=== PATIENT | male | born 1945 | race Caucasian/White ===

== ENCOUNTER 2017-12-07 09:24 | Emergency (ER) | payer OTHER, SELFPAY ==
[2017-12-07] VITALS (48 sets, daily range): BP systolic 114–171; BP diastolic 64–95; PULSE 69–81; RESP 8–32; TEMP 36.6–36.7; O2SAT 94–100
--- NOTE | 2017-12-07 10:16 | ED.GENADUL ---
Disposition Clinical Impression: Syncope, Possible seizure, Left leg weakness, Dehydration Disposition: HOME Condition: Good Instructions: Dehydration (ED), Syncope (ED) Additional Instructions: Drink plenty of fluids and get plenty of rest. Call your primary care doctor at the [facility] today to schedule a follow-up appointment for reevaluation within the next week. Return to the emergency department with any worsening or new concerning symptoms. Medical Decision Making - Lab Data Laboratory Tests 12/07/17 12/07/17 12/07/17 09:35 09:35 13:45 WBC 5.71 RBC 4.40 L Hgb 13.3 L Hct 40.3 MCV 91.6 MCH 30.2 MCHC 33.0 RDW 14.6 H Plt Count 163 MPV 11.8 H Immature Gran % 0.2 Neutrophils % 76.1 Lymphocytes % 14.7 Monocytes % 7.4 Eosinophils % 1.4 Basophils % 0.2 Absolute Neutrophils 4.35 Absolute Lymphocytes 0.84 L Absolute Monocytes 0.42 Absolute Eosinophils 0.08 Absolute Basophils 0.01 Sodium 141 Potassium 3.7 Chloride 102 Carbon Dioxide 28.9 Anion Gap 10.1 BUN 19 H Creatinine 1.27 Estimated GFR/1.73 m2 55.44 Glucose 92 Calcium 9.1 Magnesium 2.1 Total Bilirubin 0.4 Conjugated Bilirubin < 0.05 AST 28 ALT 23 Alkaline Phosphatase 96 Troponin I < 0.02 Total Protein 7.5 Albumin 3.6 Urine Color Yellow Urine Clarity Clear Urine pH 5.5 Ur Specific [place] 1.025 Urine Protein 30 H Urine Ketones Trace H Urine Blood Negative Urine Nitrite Negative Urine Bilirubin Negative Urine Urobilinogen 0.2 Ur Leukocyte Esterase Negative Urine RBC Negative Urine WBC Negative Ur Epithelial Cells Rare Urine Crystals Few calcium oxalate Urine Bacteria Rare Urine Casts Negative Urine Mucus Trace Urine Other Negative Ur Culture Indicated? No Urine Glucose Negative 12/07/17 0932: 78bpm. Sinus. QRS 110. ST depression 1 mm noted in V2-V4 and V6 which has been seen in previous EKG. no acute ST elevation. No acute change from previous. - Radiology Data Radiology results: report reviewed, image reviewed CT head: negative CXR: Linear infiltrates in the left midlung may represent atelectasis, scarring or pneumonia. 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 Patient had episode of L leg weakness 3 days ago which lasted 24 hours and then resolved. Pt was seen at the [facility] ER for this leg weakness and was told his symptom was likely due to TIA. Patient has a history of multiple TIAs which usually produces a symptom of feeling off balance. Patient has no known history of seizures. states patient appears more sleepy at this time than usual. This may be postictal. Vitals within normal limits. EKG on arrival notes ST depression in anterior lateral leads which is no acute change from previous. He has no focal deficits. He is able to follow commands. Differential diagnosis includes dehydration, TIA, CVA, brain mass or metastasis, electrolyte abnormality, urinalysis, pneumonia. states if possible she would prefer patient to go home. Considering patient's history, will check labs, urinalysis, CT head and give bolus IV fluids. 1150: Labs and imaging reviewed. CT head and chest x-ray negative. No acute findings on labs. Patient given 250 bolus and appears more alert and bright eyed. He has not yet urinated. Will give another 250 cc bolus. 1330: Patient has perked up significantly and is sitting up and eating food and drinking water and appears much brighter and alert. Patient given a liter of fluids while here in the ED. later determined that patient has been drinking mainly soda for the past few days. Chest x-ray noted questionable atelectasis, scarring versus pneumonia. states that pt usually has an abnormal cxr due to his h/o lung cancer. He has no cough, chest pain, shortness of breath with normal white blood cell count, afebrile, and no tachycardia or hypoxia. Doubt pneumonia at this time. Results were discussed with patient's and she is agreeable so we will hold on antibiotics at this time. Analysis noted ketones which can support the possibility of dehydration but no evidence of infection. We discussed the possibility of whether patient had a seizure and states she is sure it appeared like that. We discussed again that at this point time I do not see any acute indication for admission including a possible new onset seizure and is agreeable and she would rather he go home. Recommended that they call the primary care doctor the [facility] to schedule follow-up appointment for reevaluation within the next week. They are instructed to return immediately to the ER with any worsening symptoms. 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 states that patient was complaining of feeling sick this morning and weak while walking with walker. states that patient then complained of left leg weakness. Patient had a similar episode 3 days ago at home for which she was seen in the ER at the [facility] yesterday. Patient had a 24-hour period of left leg weakness which was diagnosed as a possible TIA at the [facility] ER. states that patient had lab work and CT head which was negative and he was discharged home. states that patient complained of left leg weakness again today and she sat him down in a chair. She states shortly after this his eyes rolled back, his lips became landrum and he had full body jerking which she thought was consistent with a seizure and lasted 1 minute. states that pt still seems more sleepy than usual. Patient denies headache, dizziness, chest pain, shortness of breath, abdominal pain or urinary symptoms. Patient ate breakfast this morning and they deny recent vomiting or diarrhea. also states that patient has been told he has had previous TIAs in the past which he usually has a sensation of being off balance. - Related Data Albuterol [Proair Hfa] 2 puff IH PRN PRN 11/06/12 Formoterol Fumarate [Foradil] 1 cap IH BID 11/06/12 Levothyroxine Sodium 75 mcg PO DAILY 11/06/12 Omeprazole 40 mg PO DAILY 11/06/12 Sertraline HCl 100 mg PO DAILY 11/06/12 Tiotropium [Spiriva Handihaler] 1 cap IH DAILY 11/06/12 Albuterol/Ipratropium [Duoneb Updraft] 1 ea IH QID 04/25/15 Mineral Oil/Petrolatum,White [Eucerin Creme] 1 applic TP PRN PRN 04/25/15 Mometasone [Asmanex 220 Twisthaler] 1 puff IH BID 04/25/15 Multivitamin with Minerals [Multivitamins with Minerals] 1 tab PO DAILY 04/25/15 Allergies Allergy/AdvReac Type Severity Reaction Status Date / Time bupropion HCl AdvReac Intermediate Hives Unverified 10/23/17 11:46 [From Wellbutrin] tape AdvReac Mild itchy/localized Uncoded 10/23/17 11:46 welts Review of Systems Constitutional: denies: chills, fever Eyes: denies: eye pain ENT: denies: ear pain, dental pain Respiratory: denies: cough, shortness of breath Cardiovascular: denies: chest pain, dyspnea on exertion Gastrointestinal: denies: abdominal pain, nausea, vomiting Genitourinary: denies: urgency, dysuria, frequency Musculoskeletal: denies: back pain Skin: denies: rash, lesions Neurological: denies: headache, weakness, numbness Past Medical History - Past Medical History Medical history: AMI, CAD, cancer, COPD, GERD, hyperlipidemia, hypertension Surgical history: angioplasty/stent, appendectomy, cholecystectomy, herniorraphy, other - Social History Smoking status: never smoker Alcohol use: none Drug use: none General Exam - General Limitations: no limitations General appearance: in no apparent distress - Eye Eye exam: Present: PERRL, EOMI - Respiratory Respiratory exam: Present: normal lung sounds bilaterally. Absent: respiratory distress, wheezes, rales, rhonchi, stridor - Cardiovascular Cardiovascular Exam: Present: regular rate, normal rhythm. Absent: bradycardia, tachycardia - GI/Abdominal GI/Abdominal exam: Present: soft, normal bowel sounds. Absent: distended, tenderness, guarding, rebound, rigid - Extremities Exam Extremities exam: Present: full ROM - Neurological Exam Neurological exam: Present: alert, oriented X3, CN II-XII intact. Absent: motor sensory deficit - Psychiatric Psychiatric exam: Present: flat affect - Skin Skin exam: Present: warm, dry, intact Course Vital Signs - 24 hr 12/07/17 12/07/17 12/07/17 09:25 09:28 09:30 Temperature 97.9 F Pulse 75 Respiratory 16 18 16 Rate Blood Pressure 122/67 Pulse Oximetry 97 95 94 L 12/07/17 12/07/17 12/07/17 09:31 09:40 09:46 Temperature Pulse 72 72 Respiratory 17 18 20 Rate Blood Pressure 122/67 116/65 Pulse Oximetry 94 L 96 95 12/07/17 12/07/17 09:50 10:06 Temperature Pulse Respiratory 21 16 Rate Blood Pressure Pulse Oximetry 96
--- NOTE | 2017-12-07 10:36 | DI.RPTCT_ITS ---
SYMPTOM/DIAGNOSIS: POSSIBLE SEIZURE/SYNCOPE. R/O ACUTE MASS, LESION CT BRAIN: Noncontrast. Comparison 10/23/17. There is cerebral atrophy consistent with the patient's age. There are areas of decreased attenuation in the white matter consistent with small vessel ischemic disease. There are bilateral lacunar infarcts present. No acute intracranial hemorrhage, infarct, midline shift or mass effect is identified. The ventricles are intact. The basilar cisterns are patent. No findings to suggest acute sinusitis are seen. The mastoid air cells are well pneumatized. The calvarium is intact. IMPRESSION: No acute intracranial process.
--- NOTE | 2017-12-07 10:38 | DI.REPORT_ITS ---
SYMPTOM/DIAGNOSIS: SYNCOPE VS SEIZURE, H/O LUNG CANCER, R/O ACUTE PROCESS CHEST X-RAY: Frontal and lateral views. Comparison is 04/25/15. Heart size and pulmonary vasculature are stable. There is a linear infiltrate seen in the left hilar region. The lungs are otherwise clear. The lungs are hyperinflated consistent with underlying COPD. No effusions or pneumothoraces are identified. The bones appear intact. IMPRESSION: Linear infiltrates seen in the left mid lung. This may represent atelectasis, scarring or pneumonia.
[2017-12-07 10:46] LABS: Abs Immature Grans 0.01 k/cumm (0.0-0.09); Absolute Basophil Count 0.01 k/cumm (0.0-0.2); Absolute Eosinophil Count 0.08 k/cumm (0.0-0.7); Absolute Lymphocyte Count 0.84 k/cumm (1.2-3.4); Absolute Monocyte Count 0.42 k/cumm (0.11-0.7); Absolute Neutrophil Count 4.35 k/cumm (1.2-6.7); Basophils % 0.2; Eosinophils % 1.4; HCT 40.3 % (40.0-50.0); HGB 13.3 g/dL (13.5-17.5); Immature Grans % 0.2; Lymphocytes % 14.7; Mean Corpuscular Hemoglobin 30.2 pg (27.0-33.0); Mean Corpuscular Volume 91.6 fL (80-95); Mean Platelet Volume 11.8 fL (8.0-11.0); Monocytes % 7.4; Neutrophils % 76.1; Platelet Count 163 x1000/uL (130-400); RBC Distribution Width 14.6 % (11.8-14.1); White Blood Cell Count 5.71 k/cumm (4.4-10.8)
[2017-12-07] MEDS: Normal Saline 250 ML IV ×3 (11:00→13:15)
[2017-12-07 11:01] LABS: ALT 23 U/L (12-78); AST 28 U/L (15-37); Albumin 3.6 g/dL (3.4-5.0); Alkaline Phosphatase 96 U/L (46-116); Anion Gap 10.1 mmol/L (3-11); BUN 19 mg/dL (7-18); Bilirubin, Total 0.4 mg/dL (0.2-1.0); CO2 28.9 mmol/L (21.0-32.0); CREATININE 1.27 mg/dL (0.70-1.30); Calcium 9.1 mg/dL (8.5-10.1); Chloride 102 mmol/L (98-107); Estimated GFR 55.44 (mL/min/1.73m2); Glucose 92 mg/dL (70-100); Magnesium 2.1 mg/dL (1.8-2.4); Potassium 3.7 mmol/L (3.5-5.1); Sodium 141 mmol/L (136-145); Total Protein 7.5 g/dL (6.4-8.2)
[2017-12-07 11:23] LABS: Bilirubin, Direct < 0.05 mg/dL (0.00-0.20); Troponin I < 0.02 ng/mL (0.00-0.06)
--- NOTE | 2017-12-07 11:43 | NUR.NOTE ---
Nursing Note: Pt returns from radiology. Continues awake/ affect continues flat . FAST continues neg.
--- NOTE | 2017-12-07 11:45 | NUR.NOTE ---
Nursing Note: Pt unable to void at this time. is at the bedside and is encouraging.
--- NOTE | 2017-12-07 11:58 | NUR.NOTE ---
Nursing Note: Pt talking more with his and states to ED RN I think I feel a little better.
--- NOTE | 2017-12-07 13:39 | NUR.NOTE ---
Nursing Note: Pt stands to void and has dark yellow urine , 50cc total. states pt has been drinking alot of coke lately, minimal decafinated product.. Pt is more interactive with ED RN and is able to stand and walk with ED RN standing at his side for safety.
[2017-12-07 13:49] LABS: Bilirubin Negative (Negative); Blood Negative (Negative); Clarity Clear; Glucose Negative (Negative); Ketones Trace mg/dL (Negative); Leukocyte Esterase Negative (Negative); Nitrite Negative (Negative); Specific Gravity 1.025 (1.005-1.025); Urobilinogen 0.2 EU/dL (Up TO 0.2); pH 5.5 (5-8)
--- NOTE | 2017-12-07 13:54 | NUR.NOTE ---
Nursing Note: 1335: Pt to MRI prior to admission to med-surg. Med-surg aware pt will be admitted following MRI.
[2017-12-07 13:56] LABS: Bacteria Rare HPF (Negative); C & S Indicated? No; Casts Negative LPF (Negative); Crystals Few Calcium Oxalate HPF (Negative); Epithelial Cells Rare HPF (Negative); Mucus Trace (Negative); Other Cells Negative (Negative); RBC Negative (0-2); WBC Negative HPF (0-5)
== END 2017-12-07 14:55 | disposition home or self-care (01) ==
PROVIDERS: Emergency Provider Physician Assistant
DX: R55 Syncope and collapse (principal); E86.0 Dehydration; G81.94 Hemiplegia, unspecified affecting left nondominant side
CPT/HCPCS: 36415; 80053; 80076; 93005; 96360; 96361; 99285; 70450; 71046; 81003; 81015; 83735; 84484; 85025; 93010

== ENCOUNTER 2018-03-19 09:14 | Emergency (ER) | payer OTHER, SELFPAY ==
[2018-03-19 09:21] VITALS: BP 153/95; PULSE 83; RESP 18; TEMP 36.6; O2SAT 96
--- NOTE | 2018-03-19 09:41 | DI.CT_ITS ---
SYMPTOMS/DIAGNOSIS: HEADACHES AND WEAKNESS, ? SUBDURAL HEMATOMA CRANIAL CT: Noncontrast cranial CT was performed. There is moderate generalized cerebral atrophy. There is a probable small old right cerebellar infarction and there are bilateral lacunar infarctions, right greater than left. No evidence of acute intracranial hemorrhage, mass effect or midline shift. Orbital and temporal bone structures appear intact. CONCLUSION: No evidence of acute intracranial process.
--- NOTE | 2018-03-19 09:47 | ED.GENADUL_ITS ---
Discharge Plan Disposition Patient Disposition: HOME Condition: Stable Discharge Details Chief Complaint: GenMedical Clinical Impression: General weakness Reason For Visit: PK Primary Care Provider: Latasha Myers ED Provider: Pravin Adam Home Meds and New Rx's Prescriptions: New levofloxacin 750 mg tablet 750 mg PO DAILY Qty: 7 RF: 0 Continue omeprazole 20 MG capsule,delayed release(DR/EC) 40 mg PO BID RF: 0 levothyroxine 75 MCG tablet 75 mcg PO DAILY RF: 0 albuterol sulfate [ProAir HFA] 200 PUFF HFA aerosol inhaler 2 puff Inhalation PRN PRNRF: 0 tiotropium bromide [Spiriva with HandiHaler] 1 PUFF capsule, w/inhalation device 1 cap Inhalation DAILY RF: 0 multivitamin with minerals 1 EACH tablet 1 tab PO DAILY RF: 0 white petrolatum-mineral oil [Eucerin] 120 GM cream 1 applic Topical PRN PRNRF: 0 aspirin-dipyridamole [Aggrenox] 25-200 mg Capsule, Er Multiphase 12 Hr 1 cap PO BID RF: 0 aspirin 325 mg Tablet 325 mg PO DAILY RF: 0 duloxetine 30 mg Capsule,Delayed Release(Dr/Ec) 30 mg PO BID RF: 0 Discharge Instructions Instructions: Weakness (ED) Additional Instructions: follow up with your primary care provider within 1-2 weeks if you have difficulty breathing, abdominal pain, persistent vomit or high fevers return to the emergency department Medical Decision Making 72 yo male with hx of lung cancer with mets to the brain who hasn't had treatment in quite some time, comes in with cc of general weakness and falls yesterday per ems. He has no focal neuro deficits on exam so doubt cva. He has no complaints on my exam other than just feeling globally weak. Will obtain CT head to eval for sdh, chest xray to eval for possible pna though has no fever or cough to suggest this and normal spo2. Will also eval for uti, anemia and electrolyte abnormalities pt's labs show no significant abnormality, though has had urinary incontinence and blood in a few bacteria on UA. Will treat as possible UTI. is comfortable bringing pt home and declined speaking with care management as she is going to talk to [facility]. Return precautions given. CT head per Dr. Soler unremarkable Differential Diagnosis deconditioning, sdh, pna, uti, electrolyte abnormality Imaging Data Radiologic Study: Attestation: I personally reviewed and interpreted this imaging study as follows: Imaging: X-Ray My impression: no acute findings on chest xray Radiologic Study #2: Attestation: I personally reviewed and interpreted this imaging study as follows: Imaging: CT Scan Radiologist's impression: no acute findings per Dr. Elysia MENENDEZ General Mode of arrival: EMS . Date/Time Provider Initiated Documentation: 03/19/18 09:29 . Limitations to Documentation: no limitations . Information obtained by: patient . History of Present Illness 72 year old M presents to the emergency department with the chief complaint of general weankess, described as moderate, Patient started experiencing this day(s) (3) and it has been constant. No relieving factors improve symptom(s) , No exacerbating factors reported . Patient notes no other symptoms.. Patient did receive the following treatments prior to arrival, none Related Data Home Medications Medication Instructions Recorded Confirmed albuterol sulfate [ProAir HFA] 2 puff INHALATION PRN PRN 11/06/12 03/19/18 levothyroxine 75 mcg PO DAILY 11/06/12 03/19/18 omeprazole 40 mg PO BID 11/06/12 03/19/18 tiotropium bromide [Spiriva with 1 cap INHALATION DAILY 11/06/12 03/19/18 HandiHaler] multivitamin with minerals 1 tab PO DAILY 04/25/15 03/19/18 white petrolatum-mineral oil 1 applic TOPICAL PRN PRN 04/25/15 03/19/18 [Eucerin] aspirin 325 mg PO DAILY 03/19/18 03/19/18 aspirin-dipyridamole [Aggrenox] 1 cap PO BID 03/19/18 03/19/18 duloxetine 30 mg PO BID 03/19/18 03/19/18 levofloxacin 750 mg PO DAILY #7 tab 03/19/18 Previous Rx's Medication Instructions Recorded levofloxacin 750 mg PO DAILY #7 tab 03/19/18 Allergies Allergy/AdvReac Type Severity Reaction Status Date / Time bupropion HCl AdvReac Intermediate Hives Unverified 03/19/18 09:29 [From Wellbutrin] tape AdvReac Mild itchy/localized Uncoded 03/19/18 09:29 welts General Stated Complaint: GenMedical DANA: 2 Review of Systems Review of Systems All systems reviewed & are unremarkable except as noted in HPI and below Constitutional Denies chills and Denies fever(s) Eyes Denies loss of vision ENT Denies change in voice Cardiovascular Denies chest pain and Denies dyspnea Respiratory Denies dyspnea Gastrointestinal Denies abdominal pain, Denies nausea and Denies vomiting Genitourinary Denies dysuria Neurologic Denies loss of vision PFS Social History Smoking/Tobacco Use Status: Former Tobacco Use Exam Const General: no acute distress Orientation: alert HENMT Head: normal to inspection Ears: external ears normal General nose exam: external nose normal Mouth: moist mucous membranes Eyes General: appearance normal, both eyes and all related structures Neck Neck: normal visual inspection Resp Effort & Inspection: normal respiratory effort and able to speak in complete sentences Cardio Rate: regular rate Skin General skin exam: no rashes or lesions noted Neuro General: alert and oriented x3 Extrem General: normal to inspection Psych Mental Status: mental status grossly normal Course Vital Signs Temperature 36.6 C 03/19/18 09:21 Pulse 83 03/19/18 09:21 Respiratory Rate 18 03/19/18 09:21 Pulse Oximetry 96 03/19/18 09:21 Temperature 36.6 C 03/19/18 09:21 Temperature Source Skin 03/19/18 09:21 Pulse 83 03/19/18 09:21 Respiratory Rate 18 03/19/18 09:21 Pulse Oximetry 96 03/19/18 09:21 Pain Level 0 03/19/18 09:21
[2018-03-19 10:11] LABS: Abs Immature Grans 0.06 k/cumm (0.0-0.09); Absolute Basophil Count 0.01 k/cumm (0.0-0.2); Absolute Eosinophil Count 0.04 k/cumm (0.0-0.7); Absolute Monocyte Count 0.54 k/cumm (0.11-0.7); Basophils % 0.1; Eosinophils % 0.3; HCT 42.4 % (40.0-50.0); HGB 13.7 g/dL (13.5-17.5); Immature Grans % 0.5; Lymphocytes % 6.8; Mean Corp. HGB Concentration 32.3 g/dL (32.0-36.0); Mean Corpuscular Hemoglobin 30.5 pg (27.0-33.0); Mean Corpuscular Volume 94.4 fL (80-95); Monocytes % 4.2; Neutrophils % 88.1; Platelet Count 174 x1000/uL (130-400); RBC 4.49 m/cumm (4.50-6.00); RBC Distribution Width 14.9 % (11.8-14.1); White Blood Cell Count 12.87 k/cumm (4.4-10.8)
[2018-03-19 10:12] LABS: Absolute Lymphocyte Count 0.88 k/cumm (1.2-3.4); Absolute Neutrophil Count 11.34 k/cumm (1.2-6.7)
[2018-03-19 10:17] LABS: ALT 24 U/L (12-78); AST 10 U/L (15-37); Albumin 3.3 g/dL (3.4-5.0); Alkaline Phosphatase 69 U/L (46-116); Anion Gap 4.5 mmol/L (3-11); BUN 19 mg/dL (7-18); Bilirubin, Total 0.8 mg/dL (0.2-1.0); CO2 32.5 mmol/L (21.0-32.0); CREATININE 1.15 mg/dL (0.70-1.30); Calcium 8.8 mg/dL (8.5-10.1); Chloride 104 mmol/L (98-107); Glucose 100 mg/dL (70-100); Magnesium 2.4 mg/dL (1.8-2.4); Potassium 3.7 mmol/L (3.5-5.1); Sodium 141 mmol/L (136-145); Total Protein 6.6 g/dL (6.4-8.2)
[2018-03-19 10:18] LABS: INR 1.1 (1.0-3.5); PTT Activated 26.8 sec (21.0-31.4); Prothrombin Time 10.3 sec (9.3-10.8)
--- NOTE | 2018-03-19 10:30 | DI.RAD_ITS ---
SYMPTOM/DIAGNOSIS: COUGH PA AND LATERAL CHEST: No clinical information is provided other than 'cough'. There are chronic changes in the lungs. There is no pleural effusion. There is no localized infiltrate, however, there is prominence of the left hilum and a linear area of scarring is noted in the left mid-lung. Also thickening of the major and minor fissures noted on the left side. The heart is not enlarged. SUMMARY: Hilar adenopathy or left hilar mass could not be entirely excluded. In the absence of a prior examination then further assessment with CT should be considered.
[2018-03-19 11:13] LABS: Bilirubin Negative (Negative); Blood Trace-intact (Negative); Clarity Clear; Glucose Negative (Negative); Ketones Negative (Negative); Leukocyte Esterase Negative (Negative); Nitrite Negative (Negative); Specific Gravity 1.015 (1.005-1.025); pH 7.5 (5-8)
[2018-03-19 11:22] LABS: WBC Negative HPF (0-5)
[2018-03-19 11:23] LABS: Bacteria Few HPF (Negative); C & S Indicated? No; Casts Negative LPF (Negative); Crystals Moderate Amorphous HPF (Negative); Epithelial Cells Negative HPF (Negative); Mucus Negative (Negative); Other Cells Rare Renal (Negative)
[2018-03-19 11:25] VITALS: RESP 16
[2018-03-19 12:34] VITALS: BP 126/72; PULSE 95; RESP 18; TEMP 37.1; O2SAT 95
== END 2018-03-19 12:30 | disposition home or self-care (01) ==
PROVIDERS: Emergency Provider Emergency Medicine
DX: R53.1 Weakness (principal); R29.6 Repeated falls; N39.0 Urinary tract infection, site not specified; C79.31 Secondary malignant neoplasm of brain; J44.9 Chronic obstructive pulmonary disease, unspecified; Z87.891 Personal history of nicotine dependence; I10 Essential (primary) hypertension
CPT/HCPCS: 36415; 80053; 99284; 70450; 71046; 81003; 81015; 83735; 85025; 85610; 85730

== ENCOUNTER 2018-11-19 15:38 | Emergency (ER) | payer OTHER, SELFPAY ==
[2018-11-19] VITALS (38 sets, daily range): BP systolic 121–177; BP diastolic 86–108; PULSE 72–93; RESP 13–32; TEMP 36.4–36.6; O2SAT 91–97
--- NOTE | 2018-11-19 15:39 | W.ED.GENAD ---
Discharge Plan Disposition Patient Disposition: AGAINST MEDICAL ADVICE Condition: Improving Discharge Details Chief Complaint: CVA/TIA Clinical Impression: TIA (transient ischemic attack), Unresponsive episode Primary Care Provider: Latasha Myers ED Provider: Elsie Melara Home Meds and New Rx's Prescriptions: Continued omeprazole 20 MG capsule,delayed release(DR/EC) 40 mg PO BID RF: 0 levothyroxine 75 MCG tablet 75 mcg PO DAILY RF: 0 albuterol sulfate [ProAir HFA] 200 PUFF HFA aerosol inhaler 2 puff Inhalation PRN PRNRF: 0 Spiriva with HandiHaler 1 PUFF capsule, w/inhalation device 1 cap Inhalation DAILY RF: 0 aspirin-dipyridamole [Aggrenox] 25-200 mg Capsule, Er Multiphase 12 Hr 1 cap PO BID RF: 0 aspirin 325 mg Tablet 325 mg PO DAILY RF: 0 Discharge Instructions Instructions: Transient Ischemic Attack (ED) Additional Instructions: Drink plenty of fluids and get plenty of rest. Call the [facility] tomorrow morning to schedule follow-up appointment for reevaluation this week. Return immediately to the emergency department with any worsening or new concerning symptoms. Discharge Data Discharge Date/Time-TO BE ENTERED AT DEPARTURE: 11/19/18 19:29 Discharge Physician: Elsie Melara Medical Decision Making 73-year-old male with a history of lung cancer, COPD, [place], hypothyroidism who presents to the ED for possible stroke alert. Per EMS, family noticed patient to have decreased responsiveness over the past 2 hours which he thought was attributable to a TIA. states that patient is DNI. EMS notes his vitals are within normal limits. Glucose 150s. He is answering some questions for them but overall not his baseline and not answering questions or following commands. No signs of airway compromise. Patient does not follow commands for me with answering questions or testing motor strength. Sent directly to CT for stat CT head and stroke alert. 1599 --CT head negative. 1829 --labs and chest x-ray reviewed and unremarkable. Normal white blood cell count. Normal coagulation studies. Normal electrolytes. Troponin negative. Chest x-ray negative. states that patient appears near close to his baseline but still slightly slowed in his responses. UA pending. Will give small bolus IV fluids. 1919 -- states patient is back to his baseline. UA negative. Discussed that with patient's history of TIAs and possible TIA today, would recommend admission for further observation, possible MRI and additional work-up in the a.m. but she is declining at this time. She states patient is followed [facility] and [facility] She is declining any admission or transfer to the [facility]. Patient was made aware of his results and states he would like to go home. Risks of and disability due to acute neurologic pathology explained and patient and understand and would still like to leave. Patient seems to understand the risks, but makes decisions on the patient's behalf. AMA form signed. Patient and advised to return here immediately with any worsening or new concerning symptoms. Medical Records Medical records reviewed: Yes I reviewed the patient's medical records. Imaging Data Radiologic Study: Radiologist's impression: CT BRAIN: Noncontrast examination. Comparison is 03/19/18. There is global cerebral atrophy consistent with the patient's age. There are again seen multiple bilateral lacunar infarcts. No evidence of an acute territorial infarct, hemorrhage, midline shift or mass effect. The ventricles are intact. The basilar cisterns are patent. The visualized paranasal sinuses are clear. The mastoid air cells are well pneumatized. The calvarium is intact. IMPRESSION: No acute intracranial process. XR Chest, 1 View EXAM DATE/TIME: 11/19/2018 3:52 PM CLINICAL HISTORY: 73 years old, male; Other: Stroke TECHNIQUE: Imaging protocol: XR of the chest, 1 view. COMPARISON: CR XR CHEST 2V PA LATERAL 03/19/2018 10:20 AM FINDINGS: Lungs: Chronic linear atelectasis versus scarring in the left upper lobe. No acute focal areas of consolidation. Pleural space: No pleural effusion or pneumothorax. Heart/Mediastinum: Cardiac and mediastinal silhouettes are unremarkable. Bones/joints: No acute osseus lesion or fracture. IMPRESSION: No acute cardiopulmonary pathology. Lab Data Lab results reviewed: Yes I reviewed the patient's lab results. ECG Data Attestation: I personally reviewed and interpreted this ECG (s) as follows: Interpretation: Rate of 87, sinus, [address] depression in V2, V3, V4 and [address] depression in V5 all of which has been seen in previous EKG. No acute ST elevation. QTc 462. QRS 106 HPI General Mode of arrival: ambulatory. Date/Time Provider Initiated Documentation: 11/19/18 15:39. Limitations to Documentation: no limitations. Information obtained by: patient. HPI Narrative: Patient is a 73-year-old male with a history of lung cancer, GERD, hypertension, high cholesterol, hypothyroidism [place] with cardiac stents who presents to the ED for concern for possible stroke. Approximately 2 hours prior to arrival, noted patient to be unresponsive while sitting in a chair. He was breathing but not answering questions or following commands. states the patient has a history of multiple TIAs status post radiation for his lung cancer for the past 2 years. She states he has been evaluated multiple times for this with negative work-ups and was told that he has TIAs of unknown etiology. states she thought his symptoms today were due to his usual TIA but this usually lasts approximately 30 minutes and this lasted longer at approximately 2 hours so she called EMS. She states that he seems to now be coming around. EMS states that upon their arrival, patient was answering some questions but not following most commands. denies any known fever, recent illness, vomiting, diarrhea and states patient has had no complaints of chest pain, shortness of breath. Related Data Home Medications Medication Instructions Recorded Confirmed Spiriva with HandiHaler 1 cap INHALATION DAILY 11/06/12 11/19/18 albuterol sulfate [ProAir HFA] 2 puff INHALATION PRN PRN 11/06/12 11/19/18 levothyroxine 75 mcg PO DAILY 11/06/12 11/19/18 omeprazole 40 mg PO BID 11/06/12 11/19/18 aspirin 325 mg PO DAILY 03/19/18 11/19/18 aspirin-dipyridamole [Aggrenox] 1 cap PO BID 03/19/18 11/19/18 Allergies Allergy/AdvReac Type Severity Reaction Status Date / Time bupropion HCl AdvReac Intermediate Hives Unverified 11/19/18 16:12 [From Wellbutrin] tape AdvReac Mild itchy/localized Uncoded 11/19/18 16:12 welts General DANA: 2 Review of Systems Review of Systems All systems reviewed & are unremarkable except as noted in HPI and below Constitutional Reports as per HPI, Denies chills and Denies fever(s) Eyes Denies blurry vision ENT Denies dizziness, Denies sore throat and Denies throat swelling Cardiovascular Denies chest pain and Denies dyspnea Respiratory Denies cough and Denies dyspnea Gastrointestinal Denies abdominal pain, Denies diarrhea and Denies vomiting Genitourinary Denies hematuria and Denies dysuria Musculoskeletal Denies back pain and Denies numbness Integumentary/Breasts Denies lesions and Denies rash Neurologic Denies dizziness, Denies focal weakness and Denies numbness Allergic/Immunologic Denies throat swelling [facility] Medical History COPD (chronic obstructive pulmonary disease) (Chronic) GERD (gastroesophageal reflux disease) (Chronic) HTN (hypertension) (Chronic) Hx of hyperlipidemia (Acute) Lung cancer (Chronic) Myocardial infarction (Chronic) Surgical History History of appendectomy (Chronic) History of coronary artery stent placement (Chronic) History of hernia repair (Chronic) Hx of cholecystectomy (Chronic) Social History Smoking/Tobacco Use Status: Former Tobacco Use Alcohol Intake: former Drug use: Never Do you feel safe in your relationship?: Yes Exam Const General: healthy appearing and no acute distress HENMT Head: normal to inspection Face and sinus: normal facial exam Eyes General: appearance normal, both eyes and all related structures Pupils: PERRL EOM: EOM intact bilaterally Neck Neck: normal visual inspection and No submandibular swelling Lymphatic: no lymphadenopathy noted Chest Chest: normal inspection of the chest and no tenderness Resp Effort & Inspection: normal respiratory effort Auscultation: clear to auscultation bilaterally Cardio Rate: regular rate Rhythm: regular rhythm GI Inspection: normal to inspection Palpation: soft, not firm, not rigid and nontender Auscultation: normal bowel sounds Skin General skin exam: no rashes or lesions noted Neuro General: awake Speech: abnormal speech slurred Other: Not following commands so unable to assess for motor or sensory or verbal. He seems to spontaneously lift his left upper extremity. Extrem General: normal to inspection, full ROM, normal capillary refill, no calf tenderness bilaterally and no edema Psych Appearance: grossly normal Mental Status: mental status grossly normal Speech and Movement: speech and movement normal Affect: normal affect
--- NOTE | 2018-11-19 15:45 | DI.CT_ITS ---
SYMPTOMS/DIAGNOSIS: UNRESPONSIVE EPISODE, ? ACUTE CEREBROVASCULAR ACCIDENT CT BRAIN: Noncontrast examination. Comparison is 03/19/18. There is global cerebral atrophy consistent with the patient's age. There are again seen multiple bilateral lacunar infarcts. No evidence of an acute territorial infarct, hemorrhage, midline shift or mass effect. The ventricles are intact. The basilar cisterns are patent. The visualized paranasal sinuses are clear. The mastoid air cells are well pneumatized. The calvarium is intact. IMPRESSION: No acute intracranial process. The findings were discussed with the Emergency Department on the date of the examination.
--- NOTE | 2018-11-19 15:51 | DI.RAD_ITS ---
SYMPTOMS/DIAGNOSIS: POSSIBLE STROKE, ? ACUTE DISEASE PORTABLE CHEST: Comparison 03/19/[address] scan of the chest from 10/23/17. The heart size is within normal limits. There is tortuosity of the thoracic aorta. There is enlargement of the superior mediastinum shown to be vasculature on the CT scan from 10/23/17. There is unchanged scarring in the left mid lung. No new infiltrates, effusions or pneumothoraces are identified. IMPRESSION: No acute pulmonary process.
[2018-11-19 15:58] LABS: Abs Immature Grans 0.02 k/cumm (0.0-0.09); Absolute Basophil Count 0.02 k/cumm (0.0-0.2); Absolute Eosinophil Count 0.18 k/cumm (0.0-0.7); Absolute Lymphocyte Count 0.91 k/cumm (1.2-3.4); Absolute Monocyte Count 0.58 k/cumm (0.11-0.7); Absolute Neutrophil Count 4.82 k/cumm (1.2-6.7); Basophils % 0.3; Eosinophils % 2.8; HCT 43.1 % (40.0-50.0); Immature Grans % 0.3; Lymphocytes % 13.9; Mean Corp. HGB Concentration 32.5 g/dL (32.0-36.0); Mean Corpuscular Hemoglobin 28.7 pg (27.0-33.0); Mean Corpuscular Volume 88.5 fL (80-95); Mean Platelet Volume 11.3 fL (8.0-11.0); Monocytes % 8.9; Neutrophils % 73.8; Platelet Count 192 x1000/uL (130-400); RBC 4.87 m/cumm (4.50-6.00); RBC Distribution Width 13.9 % (11.8-14.1); White Blood Cell Count 6.53 k/cumm (4.4-10.8)
[2018-11-19 16:14] LABS: PTT Activated 24.6 sec (21.0-31.4); Prothrombin Time 9.9 sec (9.3-11.0)
[2018-11-19 16:20] LABS: ALT 25 U/L (12-78); AST 10 U/L (15-37); Albumin 3.6 g/dL (3.4-5.0); Alkaline Phosphatase 98 U/L (46-116); Anion Gap 7.5 mmol/L (3-11); BUN 18 mg/dL (7-18); Bilirubin, Total 0.4 mg/dL (0.2-1.0); CO2 30.5 mmol/L (21.0-32.0); CREATININE 1.31 mg/dL (0.70-1.30); Calcium 9.5 mg/dL (8.5-10.1); Chloride 105 mmol/L (98-107); Estimated GFR 53.34 (mL/min/1.73m2); Glucose 107 mg/dL (70-100); Magnesium 2.2 mg/dL (1.8-2.4); Potassium 3.5 mmol/L (3.5-5.1); Sodium 143 mmol/L (136-145); Total Protein 7.4 g/dL (6.4-8.2); Troponin I < 0.05 ng/mL (0.00-0.06)
--- NOTE | 2018-11-19 16:46 | DI.VRAD_ITS ---
EXAM: XR Chest, 1 View EXAM DATE/TIME: 11/19/2018 3:52 PM CLINICAL HISTORY: 73 years old, male; Other: Stroke TECHNIQUE: Imaging protocol: XR of the chest, 1 view. COMPARISON: CR XR CHEST 2V PA LATERAL 03/19/2018 10:20 AM FINDINGS: Lungs: Chronic linear atelectasis versus scarring in the left upper lobe. No acute focal areas of consolidation. Pleural space: No pleural effusion or pneumothorax. Heart/Mediastinum: Cardiac and mediastinal silhouettes are unremarkable. Bones/joints: No acute osseus lesion or fracture. IMPRESSION: No acute cardiopulmonary pathology. Dictated and Authenticated by: Gianni Zendejas MD. Ordering:JOSE Zimmerman MD
[2018-11-19 18:07] LABS: Bilirubin Negative (Negative); Blood Trace-intact (Negative); Clarity Clear (Clear); Glucose Negative (Negative); Ketones Negative (Negative); Leukocyte Esterase Negative (Negative); Nitrite Negative (Negative); Urobilinogen 0.2 EU/dL (Up TO 0.2); pH 6.5 (5-8)
[2018-11-19] MEDS: Normal Saline 250 ML IV (18:15)
[2018-11-19 18:24] LABS: Bacteria Negative HPF (Negative); C & S Indicated? No; Casts 3-5 Hyaline LPF (Negative); Crystals Negative HPF (Negative); Epithelial Cells Negative HPF (Negative); Mucus Negative (Negative); RBC 0-2 (0-2); WBC Negative HPF (0-5)
== END 2018-11-19 19:29 | disposition left against medical advice (07) ==
PROVIDERS: Emergency Provider Physician Assistant
DX: G45.9 Transient cerebral ischemic attack, unspecified (principal); Z53.29 Procedure and treatment not carried out because of patient's decision for other reasons; J44.9 Chronic obstructive pulmonary disease, unspecified; I10 Essential (primary) hypertension; Z87.891 Personal history of nicotine dependence
CPT/HCPCS: 36415; 80053; 93005; 96360; 99285; 70450; 71045; 81003; 81015; 83735; 84484; 85025; 85610; 85730; 93010

== ENCOUNTER 2019-02-21 19:01 | Emergency (ER) | payer OTHER, SELFPAY ==
[2019-02-21] VITALS (12 sets, daily range): BP systolic 111–151; BP diastolic 70–98; PULSE 82–97; RESP 18–24; TEMP 36.7; O2SAT 94–96
[2019-02-21 19:39] LABS: Abs Immature Grans 0.02 k/cumm (0.0-0.09); Absolute Basophil Count 0.01 k/cumm (0.0-0.2); Absolute Eosinophil Count 0.27 k/cumm (0.0-0.7); Absolute Lymphocyte Count 0.77 k/cumm (1.2-3.4); Absolute Monocyte Count 0.43 k/cumm (0.11-0.7); Absolute Neutrophil Count 5.62 k/cumm (1.2-6.7); Basophils % 0.1; Eosinophils % 3.8; HCT 40.1 % (40.0-50.0); HGB 12.6 g/dL (13.5-17.5); Immature Grans % 0.3; Lymphocytes % 10.8; Mean Corp. HGB Concentration 31.4 g/dL (32.0-36.0); Mean Corpuscular Hemoglobin 28.1 pg (27.0-33.0); Mean Corpuscular Volume 89.3 fL (80-95); Mean Platelet Volume 10.9 fL (8.0-11.0); Platelet Count 357 x1000/uL (130-400); RBC 4.49 m/cumm (4.50-6.00); RBC Distribution Width 15.6 % (11.8-14.1); White Blood Cell Count 7.12 k/cumm (4.4-10.8)
[2019-02-21 19:57] LABS: ALT 35 U/L (16-63); AST 16 U/L (15-37); Albumin 2.8 g/dL (3.4-5.0); Alkaline Phosphatase 120 U/L (46-116); Anion Gap 8.3 mmol/L (3-11); BUN 18 mg/dL (7-18); Bilirubin, Total 0.5 mg/dL (0.2-1.0); CO2 28.7 mmol/L (21.0-32.0); CREATININE 1.08 mg/dL (0.70-1.30); Calcium 9.4 mg/dL (8.5-10.1); Chloride 103 mmol/L (98-107); Glucose 121 mg/dL (70-100); Magnesium 2.2 mg/dL (1.8-2.4); Potassium 3.8 mmol/L (3.5-5.1); Sodium 140 mmol/L (136-145); Total Protein 7.7 g/dL (6.4-8.2)
[2019-02-21 19:58] LABS: Troponin I < 0.05 ng/mL (0.00-0.06)
--- NOTE | 2019-02-21 20:42 | DI.CT_ITS ---
EXAM: CT CHEST PE CTA CLINICAL HISTORY: Hemoptysis TECHNIQUE: Axial CT angiography was performed with multi-slice acquisition and multi-planar and/or 3 D reconstructions. The exam was performed utilizing 85 cc's of Omnipaque 350. COMPARISON: No exams were available for comparison FINDINGS: There is no evidence of a pulmonary embolus. There is a stable ascending aortic aneurysm measuring 4 x 4.1 cm. There is suboptimal opacification of the thoracic aorta. This compromises measurements. The heart is enlarged. No significant pericardial effusion is seen. No evidence of right ventricula r dysfunction is present. No significant thoracic adenopathy is present. No pleural effusion or pne umothorax is identified. There is again seen an area of scarring in the left perihilar region. Atele ctatic changes are scattered in the lungs. There are emphysematous changes seen in the lungs. No fo tayler consolidating infiltrates are seen to suggest acute pneumonia. Upper abdominal images show the p atient is status post cholecystectomy. There are bilateral renal cysts again noted. The superior as pect of an abdominal aortic stent are noted. There are again seen hypodensities in the liver. These likely reflects cysts. Degenerative changes are seen in the spine. IMPRESSION: 1. No evidence of a pulmonary embolus. 2. Stable ascending aortic aneurysm. Lack of contrast opacification of the thoracic aorta limits its evaluation. 3. Pulmonary emphysema.
[2019-02-21] MEDS: Omnipaque 350 MG/ML 100 ML BTL IJ (20:45)
--- NOTE | 2019-02-21 21:00 | DI.VRAD_ITS ---
Addendum created by Anamaria Gardner MD on 02/21/2019 9:38:53 PM EDT Specifically regarding the ascending aorta. In comparison to the previous study there is minimal contrast in the aorta on today's study related to the timing of the contrast bolus. Measurement of the ascending aorta is compromised due to this fact. I believe its in comparison to the previous study the ascending aorta is probably similar to the previous study accounting for the challenge in measuring the exact caliber and a small amount of motion. Findings were discussed with Dr Lei at 02/21/2019 21:37 EDT. Initial report created on 02/21/2019 9:00:21 PM EDT PROCEDURE INFORMATION: Exam: CT Angiography Chest With Contrast Exam date and time: 02/21/2019 20:06 Clinical history: 73 years old, male; Other: Hemoptysis TECHNIQUE: Imaging protocol: Computed tomographic angiography of the chest with intravenous contrast. 3D rendering: MIP reconstructed images were created and reviewed. Radiation optimization: All CT scans at this facility use at least one of these dose optimization techniques: automated exposure control; mA and/or kV adjustment per patient size (includes targeted exams where dose is matched to clinical indication); or iterative reconstruction. Contrast material: [id number]; Contrast volume: 85 ml; Contrast route: IV RAC 18; COMPARISON: CT CHEST ABD PELVIS WITH CONTRAST 10/23/2017 11:59 FINDINGS: Pulmonary arteries: No pulmonary emboli. Aorta: Aortic stent graft partially seen in the abdomen. Similar ascending aortic aneurysm, 40 x 41 mm. The descending aorta is not well characterized due to lack of contrast opacification. However appears similar. Lungs: Dominant areas of parenchymal disease in the left perihilar region appearing generally linear in configuration and similar to the previous study. Question history of radiation fibrosis. Scattered subsegmental atelectasis. Minor groundglass opacity in the right lung apex is more pronounced. Small nodules in the right middle lobe are more pronounced. Follow-up as per institutional protocol. No new significant airspace disease to suggest pneumonia. Pleural space: Redemonstration of emphysema with areas of pleural scarring. Heart: Stable mild cardiomegaly. The left ventricle appears dilated. Liver: Benign-appearing hepatic cysts or probable cysts. Gallbladder and bile ducts: Cholecystectomy. Kidneys and ureters: Benign-appearing renal cysts or probable cysts. Lymph nodes: No enlarged lymph nodes. Bones/joints: Nonacute rib fractures. No acute fracture or subluxation. Soft tissues: No suspicious lesions. IMPRESSION: 1. No pulmonary emboli are seen. 2. Similar ascending aortic aneurysm, 40 x 41 mm. 3. The descending aorta is not well characterized due to lack of contrast opacification. However appears similar in caliber. 4. Redemonstration of emphysema with areas of pleural scarring. Chronic appearing left perihilar disease could be a source of metastasis. 5. No new significant airspace disease to suggest pneumonia. 6. Additional findings as described. Dictated and Authenticated by: Anamaria Gardner MD. Ordering:LOCO Richardson MD
--- NOTE | 2019-02-21 21:56 | W.ED.GENAD ---
Discharge Plan Disposition Patient Disposition: HOME Condition: Stable Discharge Details Chief Complaint: GI Bleed Clinical Impression: Cough with hemoptysis Primary Care Provider: Latasha Myers ED Provider: Dylan Brumfield Home Meds and New Rx's Prescriptions: Continued omeprazole 20 MG capsule,delayed release(DR/EC) 40 mg PO BID RF: 0 levothyroxine 75 MCG tablet 75 mcg PO DAILY RF: 0 albuterol sulfate [ProAir HFA] 200 PUFF HFA aerosol inhaler 2 puff Inhalation PRN PRNRF: 0 Spiriva with HandiHaler 1 PUFF capsule, w/inhalation device 1 cap Inhalation DAILY RF: 0 clopidogrel [Plavix] 75 mg Tablet 75 mg PO DAILY RF: 0 tamsulosin 0.4 mg Capsule 0.8 mg PO QHS RF: 0 rosuvastatin 20 mg Tablet 20 mg PO DAILY RF: 0 aspirin [Aspir-81] 81 mg Tablet,Delayed Release (Dr/Ec) 81 mg PO DAILY RF: 0 sertraline 25 mg Tablet 25 mg PO DAILY RF: 0 Discharge Instructions Instructions: Hemoptysis (ED) Additional Instructions: Feel free to return to emergency department with patient for any new or significant worsening of symptoms. Otherwise it is very important that patient continues follow-up planned at the [place] established for further evaluation of patient's complaint of hemoptysis(coughing up blood). Continue patient's normally prescribed medications specifically has nightly oxygen as his initial oxygen was initially noted to be low. Referrals: [facility] [Outside] Latasha Myers [Primary Care Provider] - Discharge Data Discharge Date/Time-TO BE ENTERED AT DEPARTURE: 02/21/19 22:10 Medical Decision Making Patient presenting to the emergency department via EMS for chief complaint of hemoptysis. Family states that patient was eating dinner when he started coughing and coughed up too large clots of blood. Due to coughing up blood they called the ambulance. They deny any choking or vomiting type mechanism. EMS does state that they noted a slightly low oxygen upon arrival. 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 Patient is alert and awake, not overly verbal but does respond to some questions. Patient denies any pain or discomfort. Physical exam shows slight dried blood on corner of mouth otherwise unremarkable nondiagnostic exam. Plan to check labs including CT imaging. EKG was also performed and reviewed with Dr. Adam and shows rate of 97, nonspecific ST depression, some changes are noted compared to old EKG but nondiagnostic, no STEMI Review of labs show anemia with hemoglobin of 12.6 which is not been completely abnormal for patient, otherwise nondiagnostic cbc, CMP shows slightly elevated glucose of 121, mildly elevated alk phos and low albumin otherwise unremarkable CMP. Patient has negative troponin. CT imaging of chest shows no pulmonary embolism, some concern of possible ascending aortic aneurysm versus dilated aorta due to no specific contrast being seen but no significant change noted from CT imaging dated 2018, there is demonstration of emphysema with areas of pleural scarring chronic appearing left perihilar disease which could be metastasis, no airspace disease suggestive of pneumonia. I thoroughly reviewed previous admission that patient had at the [facility] in the records and at that time patient was admitted for aspiration pneumonia with similar complaints of hemoptysis. Patient had multiple episodes of this and very thorough work-up done at the [facility] and no specific reasoning was found except for possible concern of early recurrence of patient's lung cancer. Patient was being referral to [facility] oncology for further diagnostic testing as needed. Patient reassessed and remained stable with no new or worsening symptoms and no recurrence of hemoptysis. Patient not hypotensive. Discussed with family and they state patient always needs oxygen at night so that is not abnormal for him to be slightly hypoxic off his oxygen in the evening. Discussed [facility] findings that were reported at that time compared to today's visit. Given patient's hemoptysis I did offer admission to our hospital or to contact the [facility] but after discussion of this patient's daughter and son state that they would prefer to take patient home and that patient had stated to them that he would want to go home tonight as well. Informed them that they may return to the emergency department at any time for any new or significant worsening of symptoms. They were also offered a oxygen tank to take patient home but they stated that patient travels well without oxygen typically. Did discuss with patient's family possible palliative care consult which they stated that they have been starting to discuss this as that after patient received his radiation therapy he has significantly declined and that if this is a recurrence of patient's cancer that they would more than likely choose not to treat at this time. After discussion of diagnosis and plan of care patient and family they have no further needs, questions, or concerns and states clear understanding to return to the emergency department for any worsening symptoms. HPI General Mode of arrival: EMS. Date/Time Provider Initiated Documentation: 02/21/19 19:01. Limitations to Documentation: no limitations. Information obtained by: patient, family and RN notes reviewed. History of Present Illness 73 year old M presents to the emergency department with the chief complaint of Hemoptysis, described as similar to prior episodes, Quality is described as other (Denies pain or discomfort), Patient started experiencing this hour(s) (1) and it has been now resolved. No relieving factors improve symptom(s), Eating worsens symptoms . Patient notes no other symptoms.. Patient did receive the following treatments prior to arrival, none Related Data Home Medications Medication Instructions Recorded Confirmed Spiriva with HandiHaler 1 cap INHALATION DAILY 11/06/12 02/21/19 albuterol sulfate [ProAir HFA] 2 puff INHALATION PRN PRN 11/06/12 02/21/19 levothyroxine 75 mcg PO DAILY 11/06/12 02/21/19 omeprazole 40 mg PO BID 11/06/12 02/21/19 aspirin [Aspir-81] 81 mg PO DAILY 02/21/19 02/21/19 clopidogrel [Plavix] 75 mg PO DAILY 02/21/19 02/21/19 rosuvastatin 20 mg PO DAILY 02/21/19 02/21/19 sertraline 25 mg PO DAILY 02/21/19 02/21/19 tamsulosin 0.8 mg PO QHS 02/21/19 02/21/19 Allergies Allergy/AdvReac Type Severity Reaction Status Date / Time bupropion HCl AdvReac Intermediate Hives Unverified 02/21/19 19:16 [From Wellbutrin] tape AdvReac Mild itchy/localized Uncoded 02/21/19 19:16 welts General Stated Complaint: GI Bleed DANA: 3 Review of Systems Constitutional Constitutional: Denies fever(s) and Reports malaise Cardiovascular Cardiovascular: Denies chest pain and Denies dyspnea Respiratory Respiratory: Reports as per HPI, Reports cough, Reports hemoptysis, Denies dyspnea and Denies wheezing Gastrointestinal Gastrointestinal: Denies abdominal pain, Denies nausea and Denies vomiting Integumentary/Breasts Skin/Breast: Denies unusual bruising Allergic/Immunologic Allergic/Immunologic: Denies wheezing [facility] Medical History COPD (chronic obstructive pulmonary disease) (Chronic) GERD (gastroesophageal reflux disease) (Chronic) HTN (hypertension) (Chronic) Hx of hyperlipidemia (Acute) Lung cancer (Chronic) Myocardial infarction (Chronic) Surgical History History of appendectomy (Chronic) History of coronary artery stent placement (Chronic) History of hernia repair (Chronic) Hx of cholecystectomy (Chronic) Social History Smoking/Tobacco Use Status: Former Tobacco Use Alcohol Intake: former Drug use: Never Do you feel safe in your relationship?: Yes Exam Const General: cooperative and no acute distress Orientation: alert and awake HENMT Mouth: lip normal, tongue normal and other (Dried blood noted on corner of mouth) Chest Chest: normal inspection of the chest Resp Effort & Inspection: normal respiratory effort, able to speak in complete sentences and no respiratory distress Auscultation: clear to auscultation bilaterally and diminished lung sounds bilaterally in the lower lung allen Cardio Rate: regular rate Rhythm: regular rhythm Heart Sounds: S1 normal, S2 normal, no click, no gallops, no murmurs and no rubs GI Palpation: soft, not firm, no guarding, no masses, not rigid and nontender Neuro General: alert, awake and confused Course Vital Signs Vital signs: Vital Signs Temperature 36.7 C 02/21/19 19:11 Pulse 97 H 02/21/19 19:11 Respiratory Rate 18 02/21/19 19:11 Blood Pressure 111/80 02/21/19 19:11 Pulse Oximetry 94 L 02/21/19 19:11 Temperature 36.7 C 02/21/19 19:11 Temperature Source Skin 02/21/19 19:11 Pulse 97 H 02/21/19 19:11 Respiratory Rate 18 02/21/19 19:11 Respiratory Effort 02/21/19 19:16 Blood Pressure 111/80 02/21/19 19:11 Pulse Oximetry 94 L 02/21/19 19:11 Pain Level 0 02/21/19 19:11 Lab/Test Results Lab/Test Results: Laboratory Tests Range/Units 10/25/19 10/25/19 10/25/19 19:31 19:31 19:31 WBC (4.4-10.8) k/cumm 7.12 RBC (4.50-6.00) m/cumm 4.49 L Hgb (13.5-17.5) g/dL 12.6 L Hct (40.0-50.0) % 40.1 MCV (80-95) fL 89.3 MCH (27.0-33.0) pg 28.1 MCHC (32.0-36.0) g/dL 31.4 L RDW (11.8-14.1) % 15.6 H Plt Count (130-400) x1000/uL 357 MPV (8.0-11.0) fL 10.9 Immature Gran % 0.3 Neutrophils % 79.0 Lymphocytes % 10.8 Monocytes % 6.0 Eosinophils % 3.8 Basophils % 0.1 Absolute Neutrophils (1.2-6.7) k/cumm 5.62 Absolute Lymphocytes (1.2-3.4) k/cumm 0.77 L Absolute Monocytes (0.11-0.7) k/cumm 0.43 Absolute Eosinophils (0.0-0.7) k/cumm 0.27 Absolute Basophils (0.0-0.2) k/cumm 0.01 Sodium (136-145) mmol/L 140 Potassium (3.5-5.1) mmol/L 3.8 Chloride (98-107) mmol/L 103 Carbon Dioxide (21.0-32.0) mmol/L 28.7 Anion Gap (3-11) mmol/L 8.3 BUN (7-18) mg/dL 18 Creatinine (0.70-1.30) mg/dL 1.08 Estimated GFR/1.73 m2 (mL/min/1.73m2) >= 60.00 Glucose (70-100) mg/dL 121 H Calcium (8.5-10.1) mg/dL 9.4 Magnesium (1.8-2.4) mg/dL 2.2 Total Bilirubin (0.2-1.0) mg/dL 0.5 AST (15-37) U/L 16 ALT (16-63) U/L 35 Alkaline Phosphatase (46-116) U/L 120 H Troponin I (0.00-0.06) ng/mL < 0.05 Total Protein (6.4-8.2) g/dL 7.7 Albumin (3.4-5.0) g/dL 2.8 L Patient ABO/Rh O Positive Antibody Screen Negative
== END 2019-02-21 22:10 | disposition home or self-care (01) ==
PROVIDERS: Emergency Provider Nurse Practitioner Family
DX: R04.2 Hemoptysis (principal); I10 Essential (primary) hypertension; J44.9 Chronic obstructive pulmonary disease, unspecified; Z87.891 Personal history of nicotine dependence
CPT/HCPCS: 36415; 71275; 80053; 86850; 86900; 86901; 93005; 99285; 83735; 84484; 85025; 93010; J3490

== ENCOUNTER 2019-03-19 18:16 | Emergency (ER) | payer OTHER, SELFPAY ==
[2019-03-19] VITALS (9 sets, daily range): BP systolic 46–140; BP diastolic 28–83; PULSE 83–153; RESP 16–30; TEMP 37; O2SAT 70–87
[2019-03-19] MEDS: Ketamine 500 MG/10 ML VIAL 200 MG IV (18:20)
[2019-03-19] MEDS: Rocuronium 50 MG/5 ML SYR 100 MG IVP (18:24)
[2019-03-19] MEDS: Normal Saline 1,000 ML 125 ML IV (18:37)
[2019-03-19 18:38] LABS: Abs Immature Grans 0.06 k/cumm (0.0-0.09); Absolute Lymphocyte Count 1.47 k/cumm (1.2-3.4); Absolute Neutrophil Count 16.32 k/cumm (1.2-6.7); Basophils % 0.1; HCT 48.4 % (40.0-50.0); HGB 14.6 g/dL (13.5-17.5); Immature Grans % 0.3; Mean Corp. HGB Concentration 30.2 g/dL (32.0-36.0); Mean Corpuscular Hemoglobin 27.9 pg (27.0-33.0); Mean Corpuscular Volume 92.4 fL (80-95); Mean Platelet Volume 12.3 fL (8.0-11.0); Monocytes % 2.7; Neutrophils % 88.9; Platelet Count 276 x1000/uL (130-400); RBC 5.24 m/cumm (4.50-6.00); RBC Distribution Width 16.7 % (11.8-14.1); White Blood Cell Count 18.36 k/cumm (4.4-10.8)
[2019-03-19 18:40] LABS: Absolute Basophil Count 0.02 k/cumm (0.0-0.2)
[2019-03-19 18:46] LABS: Ammonia 10 umol/L (11-32)
[2019-03-19 18:52] LABS: INR 1.1 (0.9-1.1); PTT Activated 23.7 sec (21.0-31.4); Prothrombin Time 11.2 sec (9.3-11.0)
[2019-03-19 18:53] LABS: Diff Comment Diff Reviewed; RBC Morphology Normal
[2019-03-19 18:55] LABS: HCO3 23 mmol/L (22-28); pCO2 51 mmHg (34-47); pH 7.26 (7.35-7.45); pO2 41 mmHg (83-108); sO2 60 % (94-98); tCO2 21 mmol/L (22-29)
[2019-03-19 18:56] LABS: Site Right Radial
[2019-03-19] MEDS: MIDAZOLAM 50 MG in Normal Saline 90 ML IV (19:02)
[2019-03-19 19:09] LABS: ALT 104 U/L (16-63); AST 87 U/L (15-37); Albumin 2.9 g/dL (3.4-5.0); Alkaline Phosphatase 154 U/L (46-116); Anion Gap 13.6 mmol/L (3-11); BUN 33 mg/dL (7-18); Bilirubin, Total 0.5 mg/dL (0.2-1.0); CO2 27.4 mmol/L (21.0-32.0); CREATININE 1.64 mg/dL (0.70-1.30); Calcium 9.9 mg/dL (8.5-10.1); Chloride 112 mmol/L (98-107); Estimated GFR 41.16 (mL/min/1.73m2); Glucose 193 mg/dL (74-106); Magnesium 2.6 mg/dL (1.8-2.4); Potassium 3.5 mmol/L (3.5-5.1); Sodium 153 mmol/L (136-145); TSH 6.82 uIU/mL (0.36-3.74); Total Protein 8.4 g/dL (6.4-8.2)
[2019-03-19 19:12] LABS: Troponin I 0.09 ng/Ml (<0.06)
--- NOTE | 2019-03-19 19:14 | DI.RAD_ITS ---
EXAM: XR PORTABLE CHEST AP POST LINE INDICATION: post intubation. COMPARISON: XR PORTABLE CHEST AP from 11/19/2018 TECHNIQUE: 2D digital imaging was performed. FINDINGS: The heart size appears within normal limits. There is tortuosity and atherosclerosis of the thoracic aorta. There is an endotracheal tube present. The tip is approximately 5 centimeters from the erik. Tube does appear to deviate to the right. This may be due to patient positioning. There are opacities seen in the left lung. This may represent atelectasis or pneumonia. No definite pneumothorax is identified. A left pleural effusion cannot be excluded. IMPRESSION: 1. Endotracheal tube tip is approximately 5 centimeters above the erik. 2. Left infiltrate. Possible left pleural effusion.
[2019-03-19 19:17] LABS: Creatine Kinase 234 U/L (39-308)
[2019-03-19 19:19] LABS: HCO3 24 mmol/L (22-28); pCO2 59 mmHg (34-47); pH 7.22 (7.35-7.45); pO2 46 mmHg (83-108); sO2 65 % (94-98); tCO2 22 mmol/L (22-29)
[2019-03-19 19:21] LABS: Site Right Radial
--- NOTE | 2019-03-19 19:33 | DI.VRAD_ITS ---
PROCEDURE INFORMATION: Exam: XR Chest, 1 View Exam date and time: 03/19/2019 7:11 PM Age: 73 years old Clinical history: Device placement; Ett placement (vent status); Patient HX: CT to follow, looking for tube placement only TECHNIQUE: Imaging protocol: XR of the chest Views: 1 view. Of note the right label should have been a left label. COMPARISON: SC XR PORTABLE CHEST AP 11/19/2018 3:56 PM FINDINGS: Tubes, catheters and devices: An endotracheal tube is noted with its tip approximately 5 cm above the erik, and appears in proper position. The ET tube appears slightly deviated to the left, which may be related to patient positioning. Multiple external material are noted, limiting evaluation. Lungs/Pleural space: Within the limitation of the study, patchy opacities are seen in the left lung and there is suggestion of a small left pleural effusion. Heart/Mediastinum: No cardiomegaly. Bones/joints: Unremarkable. IMPRESSION: 1. Tip of the endotracheal tube appears to be in good position, although there is limitation due to patient positioning. 2. Patchy opacity in the left lung and likely small left pleural effusion. Dictated and Authenticated by: Deidre Scott MD. Ordering:PAOLO Victoria MD
[2019-03-19 19:35] LABS: ETHANOL BLOOD < 3.0 mg/dL (<3)
--- NOTE | 2019-03-19 19:42 | ED.GENADUL_ITS ---
Discharge Plan Disposition Patient Disposition: Discharge Details Chief Complaint: AMS/LOC Clinical Impression: Acute respiratory failure with hypoxia, Pneumonia Primary Care Provider: Latasha Myers ED Provider: Julien Paiz Home Meds and New Rx's Prescriptions: No Action omeprazole 20 MG capsule,delayed release(DR/EC) 40 mg PO BID RF: 0 levothyroxine 75 MCG tablet 75 mcg PO DAILY RF: 0 albuterol sulfate [ProAir HFA] 200 PUFF HFA aerosol inhaler 2 puff Inhalation PRN PRNRF: 0 Spiriva with HandiHaler 1 PUFF capsule, w/inhalation device 1 cap Inhalation DAILY RF: 0 clopidogrel [Plavix] 75 mg Tablet 75 mg PO DAILY RF: 0 tamsulosin 0.4 mg Capsule 0.8 mg PO QHS RF: 0 rosuvastatin 20 mg Tablet 20 mg PO DAILY RF: 0 aspirin [Aspir-81] 81 mg Tablet,Delayed Release (Dr/Ec) 81 mg PO DAILY RF: 0 sertraline 25 mg Tablet 25 mg PO DAILY RF: 0 Medical Decision Making 19:50 -- Delayed documentation secondary to providing critical care to patient. Patient was seen immediately on arrival and care was transferred from EMS to ED team. Mr. Esposito is a 73-year-old male with significant past medical history of stage IV lung cancer status post preventative radiation to the brain subsequent TIAs per family and dementia, COPD, coronary artery disease. Patient was found to be in respiratory failure, hypoxic, not improving with CPAP. Patient in critical condition on arrival. Patient unable to protect airway. Decision made to intubate. Patient was given ketamine for awake intubation. Patient was kept in upright position,cords were visualized directly and rocuronium was then administered. Immediately upon paralysis, 7.5 endotracheal tube was placed without complication. Significant white frothy sputum noted during intubation. Tube placement confirmed with positive end- tidal CO2 and colorimetric CO2, condensation in the tube, minimal breath sounds noted on left, positive breath sounds on right. Patient was noted to be hypotensive immediately post intubation. Epinephrine 0.5 mg was administered. Patient was then transitioned to norepinephrine infusion and provided volume resuscitation with NS. Difficulty obtaining adequate waveform pulse ox. Patient did seem to be tolerating mechanical ventilation well. Lung protective settings were utilized. Screening ECG was reviewed and interpreted by me: Sinus tachycardia 172 bpm, ST elevation noted in lead III and aVF, with ST depression lead I, aVL, V2 to V6. Concern for cardiac ischemia and likely related to hypoxemia. Portable chest x-ray was reviewed and interpreted by me: ET tube appears to be in appropriate position. Patchy opacity left lung. Initial arterial blood gas concerning for hypoxemia and acidosis -of note blood gas specimens seem to be significantly dark coloration. PEEP was increased to improve oxygenation. While titrating norepinephrine, fiberoptic videoscope was utilized to suction some secretions from his left mainstem bronchus. Tube was noted to be in appropriate position above erik. Patient sedated with with low dose versed (propofol was not started secondary to hypotension). 20:25 --Upon return from CT, family was brought back to the room and I discussed diagnostic results with them. I explained current life-sustaining measures including mechanical ventilation, discussed the severity of his illness and my concern that given prolonged hypoxemia my concern for significant brain injury. and daughter at bedside noting he would never want this and are considering de-escalating care to comfort measures only. I explained that should we discontinue mechanical ventilation he would likely sometime this evening. They would like additional family to see the patient and are intending to transition to comfort measures. 20:44 --CT of the head was interpreted by radiology: Atrophy. Periventricular white matter changes consistent with small vessel disease. Multiple bilateral lacunar infarcts as above. 21:00 --repeat ECG was reviewed and interpreted by me: Sinus tachycardia 132 bpm, ST changes significant improved. I had a lengthy conversation with patient's and daughter and both reiterates that patient would not want invasive treatment and request that mechanical ventilation be discontinued. They request patient be made comfort measures only. Mechanical ventilation was discontinued. ET tube was removed at the request of family. --CT chest interpreted by radiology: Findings suggestive of pneumonia in the bilateral lung allen. Mediastinal and hilar adenopathy likely reactive in nature. Ascending aortic aneurysm measuring up to 4.[address] AP diameter. CT of the abdomen pelvis interpreted by radiology: Findings suggestive of stercoral colitis in the rectum. Stable appearance of aortic aneurysm with aortoiliac stents. Stable common femoral artery aneurysms. Schmidt catheter noted with its balloon inflated within the urethra and should be retracted and replaced. -- Jayleen notified at request of family. Patient at 21:32 - no pulse, no heart beat on cardiac ascultation, pupils mid fixed and nonreactive, case monitor reveals asystole. HPI General Mode of arrival: EMS . Date/Time Provider Initiated Documentation: 03/19/19 18:42 . Limitations to Documentation: altered mental status . Information obtained by: EMS . 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 EMS note that when they arrived patient was severely hypoxic, tachypneic and in distress. CPAP was initiated and continued in route. EMS note that he seem to be leaning to left en route and eye deviated to the left and upward. History and review of systems limited secondary to altered mental status. notes the patient was home with echocardiography technologist today and when she got home from work echocardiography technologist noted that he had refused to wear his oxygen and had not been wearing it for some time. She noted that earlier in the day he did not want to eat or drink much. Related Data Home Medications Medication Instructions Recorded Confirmed Spiriva with HandiHaler 1 cap INHALATION DAILY 11/06/12 02/21/19 albuterol sulfate [ProAir HFA] 2 puff INHALATION PRN PRN 11/06/12 02/21/19 levothyroxine 75 mcg PO DAILY 11/06/12 02/21/19 omeprazole 40 mg PO BID 11/06/12 02/21/19 aspirin [Aspir-81] 81 mg PO DAILY 02/21/19 02/21/19 clopidogrel [Plavix] 75 mg PO DAILY 02/21/19 02/21/19 rosuvastatin 20 mg PO DAILY 02/21/19 02/21/19 sertraline 25 mg PO DAILY 02/21/19 02/21/19 tamsulosin 0.8 mg PO QHS 02/21/19 02/21/19 Allergies Allergy/AdvReac Type Severity Reaction Status Date / Time bupropion HCl AdvReac Intermediate Hives Unverified 02/21/19 19:16 [From Wellbutrin] tape AdvReac Mild itchy/localized Uncoded 02/21/19 19:16 welts General Stated Complaint: AMS/LOC DANA: 1 Review of Systems Unobtainable due to mental status [facility] Medical History COPD (chronic obstructive pulmonary disease) (Chronic) GERD (gastroesophageal reflux disease) (Chronic) HTN (hypertension) (Chronic) Hx of hyperlipidemia (Acute) Lung cancer (Chronic) Myocardial infarction (Chronic) Surgical History History of appendectomy (Chronic) History of coronary artery stent placement (Chronic) History of hernia repair (Chronic) Hx of cholecystectomy (Chronic) Social History Smoking/Tobacco Use Status: Former Tobacco Use Alcohol Intake: former Drug use: Never Do you feel safe in your relationship?: Yes Exam Const General: in distress Nutritional Appearance: cachectic Orientation: other (Not responding to painful stimuli) Limitations: altered mental status HENMT Mouth: other (Thick white plaque in mouth sputum) Eyes Pupils: fixed bilaterally (3mm) Neck Neck: no JVD Resp Effort & Inspection: labored, respiratory distress and tachypneic Auscultation: rales and rhonchi Cardio Rate: tachycardic Rhythm: regular rhythm GI Inspection: non-distended Skin General skin exam: other (Cyanotic hands) Neuro General: other (Unresponsive to painful stimuli) Extrem General: no edema Course Vital Signs Vital signs: Vital Signs Temperature 37 C 03/19/19 18:23 Pulse 83 03/19/19 18:23 Respiratory Rate 16 03/19/19 18:23 Pulse Oximetry 77 L 03/19/19 18:23 Temperature 37 C 03/19/19 18:23 Pulse 83 03/19/19 18:23 Respiratory Rate 16 03/19/19 18:23 Blood Pressure Position Supine 03/19/19 18:23 Pulse Oximetry 77 L 03/19/19 18:23 Oxygen Delivery Method Room Air 03/19/19 18:23 Oxygen Flow Rate 0 03/19/19 18:23 End Tidal Co2 15 03/19/19 18:23 Comment 03/19/19 18:23 Lab/Test Results Lab/Test Results: 03/19/19 19:05 Blood Blood Culture - Pending 03/19/19 18:42 Blood Blood Culture - Pending Laboratory Tests Range/Units 03/19/19 03/19/19 03/19/19 18:30 18:30 18:30 WBC (4.4-10.8) k/cumm 18.36 H RBC (4.50-6.00) m/cumm 5.24 Hgb (13.5-17.5) g/dL 14.6 Hct (40.0-50.0) % 48.4 MCV (80-95) fL 92.4 MCH (27.0-33.0) pg 27.9 MCHC (32.0-36.0) g/dL 30.2 L RDW (11.8-14.1) % 16.7 H Plt Count (130-400) x1000/uL 276 MPV (8.0-11.0) fL 12.3 H Immature Gran % 0.3 Neutrophils % 88.9 Lymphocytes % 8.0 Monocytes % 2.7 Eosinophils % 0.0 Basophils % 0.1 Absolute Neutrophils (1.2-6.7) k/cumm 16.32 H Absolute Lymphocytes (1.2-3.4) k/cumm 1.47 Absolute Monocytes (0.11-0.7) k/cumm 0.50 Absolute Eosinophils (0.0-0.7) k/cumm 0.00 Absolute Basophils (0.0-0.2) k/cumm 0.02 Differential Comment Diff reviewed RBC Morphology Normal PT (9.3-11.0) sec INR (0.9-1.1) APTT (21.0-31.4) sec Sample Site pCO2 (34-47) mmHg pO2 (83-108) mmHg O2 Saturation (94-98) % ABG pH (7.35-7.45) ABG HCO3 (22-28) mmol/L ABG Total CO2 (22-29) mmol/L ABG Base Excess (-3-3) mmol/L FiO2 % Sodium (136-145) mmol/L 153 H Potassium (3.5-5.1) mmol/L 3.5 Chloride (98-107) mmol/L 112 H Carbon Dioxide (21.0-32.0) mmol/L 27.4 Anion Gap (3-11) mmol/L 13.6 H BUN (7-18) mg/dL 33 H Creatinine (0.70-1.30) mg/dL 1.64 H Estimated GFR/1.73 m2 (mL/min/1.73m2) 41.16 Glucose (74-106) mg/dL 193 H Calcium (8.5-10.1) mg/dL 9.9 Magnesium (1.8-2.4) mg/dL 2.6 H Total Bilirubin (0.2-1.0) mg/dL 0.5 AST (15-37) U/L 87 H ALT (16-63) U/L 104 H Alkaline Phosphatase (46-116) U/L 154 H Ammonia (11-32) umol/L 10 L Creatine Kinase (39-308) U/L Troponin I (<0.06) ng/Ml 0.09 H* Total Protein (6.4-8.2) g/dL 8.4 H Albumin (3.4-5.0) g/dL 2.9 L TSH (0.36-3.74) uIU/mL 6.82 H Ethyl Alcohol (<3) mg/dL < 3.0 Range/Units 03/19/19 03/19/19 03/19/19 18:30 18:30 18:45 WBC (4.4-10.8) k/cumm RBC (4.50-6.00) m/cumm Hgb (13.5-17.5) g/dL Hct (40.0-50.0) % MCV (80-95) fL MCH (27.0-33.0) pg MCHC (32.0-36.0) g/dL RDW (11.8-14.1) % Plt Count (130-400) x1000/uL MPV (8.0-11.0) fL Immature Gran % Neutrophils % Lymphocytes % Monocytes % Eosinophils % Basophils % Absolute Neutrophils (1.2-6.7) k/cumm Absolute Lymphocytes (1.2-3.4) k/cumm Absolute Monocytes (0.11-0.7) k/cumm Absolute Eosinophils (0.0-0.7) k/cumm Absolute Basophils (0.0-0.2) k/cumm Differential Comment RBC Morphology PT (9.3-11.0) sec 11.2 H INR (0.9-1.1) 1.1 APTT (21.0-31.4) sec 23.7 Sample Site Right radial pCO2 (34-47) mmHg 51 H pO2 (83-108) mmHg 41 L O2 Saturation (94-98) % 60 L ABG pH (7.35-7.45) 7.26 L ABG HCO3 (22-28) mmol/L 23 ABG Total CO2 (22-29) mmol/L 21 L ABG Base Excess (-3-3) mmol/L FiO2 % 100 ac 20/425/5 Sodium (136-145) mmol/L Potassium (3.5-5.1) mmol/L Chloride (98-107) mmol/L Carbon Dioxide (21.0-32.0) mmol/L Anion Gap (3-11) mmol/L BUN (7-18) mg/dL Creatinine (0.70-1.30) mg/dL Estimated GFR/1.73 m2 (mL/min/1.73m2) Glucose (74-106) mg/dL Calcium (8.5-10.1) mg/dL Magnesium (1.8-2.4) mg/dL Total Bilirubin (0.2-1.0) mg/dL AST (15-37) U/L ALT (16-63) U/L Alkaline Phosphatase (46-116) U/L Ammonia (11-32) umol/L Creatine Kinase (39-308) U/L 234 Troponin I (<0.06) ng/Ml Total Protein (6.4-8.2) g/dL Albumin (3.4-5.0) g/dL TSH (0.36-3.74) uIU/mL Ethyl Alcohol (<3) mg/dL Range/Units 03/19/19 19:14 WBC (4.4-10.8) k/cumm RBC (4.50-6.00) m/cumm Hgb (13.5-17.5) g/dL Hct (40.0-50.0) % MCV (80-95) fL MCH (27.0-33.0) pg MCHC (32.0-36.0) g/dL RDW (11.8-14.1) % Plt Count (130-400) x1000/uL MPV (8.0-11.0) fL Immature Gran % Neutrophils % Lymphocytes % Monocytes % Eosinophils % Basophils % Absolute Neutrophils (1.2-6.7) k/cumm Absolute Lymphocytes (1.2-3.4) k/cumm Absolute Monocytes (0.11-0.7) k/cumm Absolute Eosinophils (0.0-0.7) k/cumm Absolute Basophils (0.0-0.2) k/cumm Differential Comment RBC Morphology PT (9.3-11.0) sec INR (0.9-1.1) APTT (21.0-31.4) sec Sample Site Right radial pCO2 (34-47) mmHg 59 H pO2 (83-108) mmHg 46 L O2 Saturation (94-98) % 65 L ABG pH (7.35-7.45) 7.22 L ABG HCO3 (22-28) mmol/L 24 ABG Total CO2 (22-29) mmol/L 22 ABG Base Excess (-3-3) mmol/L FiO2 % 100 ac/425/10 Sodium (136-145) mmol/L Potassium (3.5-5.1) mmol/L Chloride (98-107) mmol/L Carbon Dioxide (21.0-32.0) mmol/L Anion Gap (3-11) mmol/L BUN (7-18) mg/dL Creatinine (0.70-1.30) mg/dL Estimated GFR/1.73 m2 (mL/min/1.73m2) Glucose (74-106) mg/dL Calcium (8.5-10.1) mg/dL Magnesium (1.8-2.4) mg/dL Total Bilirubin (0.2-1.0) mg/dL AST (15-37) U/L ALT (16-63) U/L Alkaline Phosphatase (46-116) U/L Ammonia (11-32) umol/L Creatine Kinase (39-308) U/L Troponin I (<0.06) ng/Ml Total Protein (6.4-8.2) g/dL Albumin (3.4-5.0) g/dL TSH (0.36-3.74) uIU/mL Ethyl Alcohol (<3) mg/dL Procedures Intubation Time out performed: Yes sedative: Ketamine Mg Given: 200 paralytic: Rocuronium Mg Given: 100 Laryngoscope: Garrett (3) ET Tube Size: 7.5 Tube Secured Depth (cm): 24 Tube Secured Location: lips Tube Placement Confirmation: visualized tube passing through cords, equal breath sounds bilaterally, no breath sounds over epigastrum and confirmation by capnometry Intubation Complications: none Critical Care Time Critical Care Time Critical Care Time: Yes Total Critical Care Time: 60 Attestation: I spent greater than 60 minutes addressing this patient's immediate life threats
--- NOTE | 2019-03-19 20:00 | DI.CT_ITS ---
EXAM: CT HEAD - STROKE PROTOCOL CLINICAL HISTORY: left sided weakness TECHNIQUE: The exam was performed according to the usual protocol without contrast. COMPARISON: CT HEAD FOR STROKE PROTOCOL from 11/19/2018 FINDINGS: There is cerebral atrophy consistent with the patient's age. There is decreased attenuation in the w jenn matter, most consistent with small vessel ischemic disease. Old bilateral lacunar infarcts are present. No acute intracranial hemorrhage, midline shift or mass effect is present. The ventricles are intact. The basilar cisterns are patent. The visualized paranasal sinuses are clear as are the mastoid air cells. The calvarium is intact. IMPRESSION: No acute intracranial process.
--- NOTE | 2019-03-19 20:05 | DI.CT_ITS ---
EXAM: CT CHEST/ABD/PEL WO CLINICAL HISTORY: altered, septic TECHNIQUE: Imaging Protocol: Axial computed tomography images with coronal and sagittal reformatted images were created and reviewed CONTRAST MATERIAL: Intravenous: Omnipaque 350 Contrast volume:0 mL contrast route:IV - Oral: No COMPARISON: CHEST ABD PELVIS WITH CONTRAST from 10/23/2017 CT CHEST PE CTA from 02/21/2019 FINDINGS: CHEST: Tracheobronchial tree: Patent where visualized. There is an endotracheal tube. The tip is well above the erik. It lies approximately 4 centimeters above the erik. Mediastinum and Angle: There are mildly enlarged lymph nodes in the mediastinum. These may be reactiv e. Heart: There is no cardiomegaly. No significant pericardial effusion is present. Coronary artery ca lcifications are present. Pulmonary parenchyma: There are scattered ground-glass opacities seen in the left upper lobe and both lower lobes. There are areas of consolidation involving the upper lobe and both lower lobes. No ar chitectural distortion. Pleura: No effusion or pneumothorax. Aorta: The ascending aorta is dilated up to 4.1 centimeters in AP diameter. ABDOMEN: Liver: Normal density. There are stable hypodensities within the liver. Gallbladder and biliary tract: The patient is status post cholecystectomy. Pancreas: Normal density, no abnormal calcifications or inflammatory process. Spleen: Normal. Kidneys: Normal size, contour and axis. No radiodense stones or obstructive uropathy. There are stabl e bilateral renal cysts. Adrenal glands: There is stable adrenal nodularity. Lymph nodes: Within normal limits. Aorta: There has been no change in the abdominal aortic aneurysm. There has been no change in the ao rtic and bilateral iliac stents. There are also again noted bilateral common femoral artery aneurysm s. PELVIS: Bladder: Symmetric distention, no gross wall thickening. The patient has a Schmidt catheter. The ballo on of the catheter is dilated however within the urethra. Bowel: The rectum is distended with stool. There does appear to be mild thickening of the wall of the rectum. Findings concerning for stercoral colitis. There is diverticulosis of the colon but no evid ence of acute diverticulitis. There is no evidence of acute appendicitis. Peritoneal cavity: No ascites, collection or mesenteric inflammatory response. Bones: There are degenerative changes seen in the spine. Reproductive organs: Within normal limits. IMPRESSION: 1. Findings suggestive of stercoral colitis 2. Schmidt catheter is noted. The balloon is inflated within the urethra and should be repositioned. 3. Bilateral pulmonary infiltrates suspicious for pneumonia. 4. Mildly enlarged mediastinal lymph nodes which are likely reactive. 5. 4.1 centimeter ascending aortic aneurysm. DATA REPOSITORY: All CT scans at this facility are submitted to the National Radiology Data Registry (NRDR) Dose Index Registry (DIR) with the [employer] ([employer]). RADIATION OPTIMIZATION: All CT scans at this facility use at least one of these dose optimization te chniques: automated exposure control; mA and/or kV adjustment per patient size (includes targeted exa ms where dose is matched to clinical indication); or iterative reconstruction.
[2019-03-19 20:06] LABS: NT-proBNP 2366 pg/mL (<300)
[2019-03-19] MEDS: Lactated Ringers 1,000 ML 1000 ML IV (20:23)
[2019-03-19] MEDS: levoFLOXacin 750 MG/150 ML BAG 100 MG IVPB (20:35)
--- NOTE | 2019-03-19 20:40 | DI.VRAD_ITS ---
PROCEDURE INFORMATION: Exam: CT Head Without Contrast Exam date and time: 03/19/2019 7:50 PM Age: 73 years old Clinical history: Weakness, extremity; Left; Patient HX: PT unresponsive TECHNIQUE: Imaging protocol: Computed tomography of the head without contrast. Radiation optimization: All CT scans at this facility use at least one of these dose optimization techniques: automated exposure control; mA and/or kV adjustment per patient size (includes targeted exams where dose is matched to clinical indication); or iterative reconstruction. Other technique: STROKE PROTOCOL was implemented. COMPARISON: CT HEAD FOR STROKE PROTOCOL 11/19/2018 3:43 PM FINDINGS: Brain: There is sulcal prominence for a patient of this age. There are periventricular white matter changes consistent with small vessel disease. There are multiple bilateral old lacunar infarcts within the basal ganglion regions. There is an old lacunar infarct adjacent to the right caudate head nucleus. There is an old lacunar infarct adjacent to the left caudate head nucleus. Ventricles: The ventricular system is midline and symmetrical. It is somewhat dilated for a patient of this age. Bones/joints: Unremarkable. No acute fracture. Sinuses: Visualized sinuses are unremarkable. No fluid levels. Mastoid air cells: Visualized mastoid air cells are well aerated. Soft tissues: Unremarkable. IMPRESSION: Atrophy. Periventricular white matter changes consistent with small vessel disease. Multiple bilateral lacunar infarcts as above. ASSESSMENT: ASPECTS ([place] Stroke Program Early CT Score) is 10. Dictated and Authenticated by: Fabián Lomeli MD. Ordering:JULIANA Nichole MD
[2019-03-19] MEDS: CEFEPIME 2 GM in Normal Saline 100 ML IVPB (20:41)
--- NOTE | 2019-03-19 21:11 | DI.VRAD_ITS ---
Addendum created by Deidre Scott MD on 03/19/2019 9:26:42 PM EST THIS REPORT CONTAINS FINDINGS THAT MAY BE CRITICAL TO PATIENT CARE. The findings were verbally communicated via telephone conference with MILLY ALLISON at 9:26 PM EST on 03/19/2019. The findings were acknowledged and understood. Initial report created on 03/19/2019 9:10:45 PM EST PROCEDURE INFORMATION: Exam: CT Chest Without Contrast Exam date and time: 03/19/2019 7:53 PM Age: 73 years old Clinical history: Other: Altered, septic; Patient HX: PT unresponsive TECHNIQUE: Imaging protocol: Computed tomography of the chest without contrast. Radiation optimization: All CT scans at this facility use at least one of these dose optimization techniques: automated exposure control; mA and/or kV adjustment per patient size (includes targeted exams where dose is matched to clinical indication); or iterative reconstruction. COMPARISON: CT CHEST ABD PELVIS WITH CONTRAST 10/23/2017 11:59 AM FINDINGS: Tubes, catheters and devices: An endotracheal tube is noted approximately 4 cm from the erik in proper position. Lungs: There is dense opacification of the left lower lobe, suggestive of pneumonia. Scattered patchy and groundglass opacities are also seen predominantly in the right lower lobe and left upper lobe also concerning for pneumonia. Pleural space: No pneumothorax. No pleural effusion. Heart: No cardiomegaly. No pericardial effusion. Mediastinum: There is mediastinal and hilar adenopathy measuring up to 1.4 cm in the right lower paratracheal region this is 1.6 cm in the subcarinal region. Aorta: The ascending aorta is slightly enlarged measuring up to 4.1 cm in AP dimension (image 35, series 2). Lymph nodes: Unremarkable. No enlarged lymph nodes. Bones/joints: No acute fracture. Soft tissues: Unremarkable. IMPRESSION: 1. Findings suggestive of pneumonia in the bilateral lung allen. Mediastinal and hilar adenopathy likely reactive in nature. 2. Ascending aortic aneurysm measuring up to 4.1 cm in AP dimension. PROCEDURE INFORMATION: Exam: CT Abdomen And Pelvis Without Contrast Exam date and time: 03/19/2019 7:53 PM Age: 73 years old Clinical history: Other: Altered, septic; Patient HX: PT unresponsive TECHNIQUE: Imaging protocol: Computed tomography of the abdomen and pelvis without contrast. Radiation optimization: All CT scans at this facility use at least one of these dose optimization techniques: automated exposure control; mA and/or kV adjustment per patient size (includes targeted exams where dose is matched to clinical indication); or iterative reconstruction. COMPARISON: CT CHEST ABD PELVIS WITH CONTRAST 10/23/2017 11:59 AM FINDINGS: Liver: Normal. No mass. Gallbladder and bile ducts: The patient is status post cholecystectomy. Pancreas: Normal. No ductal dilation. Spleen: Normal. No splenomegaly. Adrenals: Normal. No mass. Kidneys and ureters: Bilateral renal cysts are noted measuring up to 6.5 cm on the left. Stomach and bowel: The rectum is distended with stool with thickening of the rectal lining, concerning for stercoral colitis. Appendix: No evidence of appendicitis. Intraperitoneal space: Unremarkable. No free air. No significant fluid collection. Vasculature: There is no significant change in appearance of abdominal aortic aneurysm and aortobiiliac stents. The aneurysm measures up to 6 cm in transverse dimension, previously 6.1 cm (image 84, series 2). Bilateral common femoral artery aneurysms are also again noted. Lymph nodes: Unremarkable. No enlarged lymph nodes. Bladder: A Schmidt catheter is noted, however the balloon is distended within the urethra (image 44, series 4). Reproductive: Unremarkable as visualized. Bones/joints: A focus of sclerosis in the L4 vertebral body is unchanged and likely a bone island. Degenerative changes are noted. Soft tissues: Unremarkable. IMPRESSION: 1. Findings suggestive of stercoral colitis in the rectum. 2. Stable appearance of aortic aneurysm with aortobiiliac stents. Stable common femoral artery aneurysms. 3. Schmidt catheter noted with its balloon inflated within the urethra and it should be retracted and replaced. Dictated and Authenticated by: Deidre Scott MD. Ordering:PAOLO Victoria MD
[2019-03-19] MEDS: HYDROmorphone 2 MG/ML VIAL (21:14)
== END 2019-03-19 22:30 | disposition expired ==
PROVIDERS: Physician Assistant; Emergency Provider Student in an Organized Health Care Education/Training Program
DX: J96.01 Acute respiratory failure with hypoxia (principal); J18.9 Pneumonia, unspecified organism; C34.90 Malignant neoplasm of unspecified part of unspecified bronchus or lung; J44.9 Chronic obstructive pulmonary disease, unspecified; I10 Essential (primary) hypertension; Z87.891 Personal history of nicotine dependence; Z92.3 Personal history of irradiation
CPT/HCPCS: 31500; 36415; 71045; 71250; 80053; 82550; 82805; 87040; 93005; 96361; 96365; 96366; 96368; 96375; 99291; 36600; 70450; 74176; 80320; 81003; 82140; 83605; 83735; 83880; 84443; 84484; 85025; 85610; 85730; 93010; J1956; J3490